=== PATIENT | female | born 1970 | race Two or more races ===

== ENCOUNTER 2016-10-21 22:16 | Emergency (ER) | payer SELFPAY ==
[~2016-10-21] VITALS: Ht 170.2 cm; Wt 63.5 kg
[2016-10-21 22:29] VITALS: BP 121/73
[2016-10-21] MEDS ORDERED: Bacitracin Oint UD TOPIC ONE (22:45)
[2016-10-21] MEDS ORDERED: SILVADENE20 GM TP (22:52)
[2016-10-21] MEDS ORDERED: CLINDAMYCIN HC300 MG ORAL (22:52)
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
[2016-10-21 23:00] VITALS: BP 121/73
== END 2016-10-21 23:50 | disposition home or self-care (01) ==
LOC: EMR 22:37
DX: L03.116 Cellulitis of left lower limb (principal)
CPT/HCPCS: 87070; 87205; 99284

== ENCOUNTER 2016-10-25 08:44 | Emergency (ER) | payer SELFPAY ==
[~2016-10-25] VITALS: Ht 170.2 cm; Wt 63.5 kg
[~2016-10-25 08:44] MED LIST: CLINDAMYCIN HC300 MG ORAL; SILVADENE20 GM TP
[2016-10-25 08:57] VITALS: BP 91/57
[2016-10-25 09:00] VITALS: BP 91/57
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
== END 2016-10-25 09:22 | disposition home or self-care (01) ==
LOC: EMR 09:00
DX: T25.12 Burn of first degree of foot (principal); X08.8XXD Exposure to other specified smoke, fire and flames, subsequent encounter
CPT/HCPCS: 99282